=== PATIENT | male | born 1955 | race Caucasian/White ===

== ENCOUNTER 2018-10-28 11:14 | Observation (INO) ==
[2018-10-28] MEDS ORDERED: Ipratropium/Albuterol Neb 3 ML IH ONE (11:37)
[2018-10-28] MEDS ORDERED: methylPREDNISolone 125 MG/2 ML VIAL IVP ONE (11:37)
[2018-10-28] MEDS ORDERED: Acetaminophen 325 MG TABLET PO ONE (11:38)
[2018-10-28] MEDS ORDERED: Isovue-370 500 ML BOTTLE IVP ONE (13:01)
--- NOTE | 2018-10-28 13:14 | Emergency Department Note ---
Disposition Clinical Impression: Acute exacerbation of chronic obstructive airways disease Disposition: Admitted As Inpatient Condition: Good Time of Disposition: 16:48 General Adult HPI - General Chief complaint: ED Shortness of Breath/Dyspnea Stated complaint: DAVI Time Seen by Provider: 10/28/18 11:25 Source: patient Limitations: no limitations Nursing Notes Reviewed: Yes Vital Signs Reviewed: Yes - History of Present Illness HPI Narrative: 63 yo male with past medical history of COPD presents to the emergency room with difficulty in breathing. This patient states that he has been coughing for the past week with some shortness of breath but since last night shortness of breath has gotten acutely worse. He now has trouble catching his breath after coughing spells. The cough has been nonproductive. He did take his albuterol inhaler this morning at 4:00 which slightly helped with his shortness of breath. He has had to be admitted for pneumonia in the past. He denies a history of heart attack, heart failure, other medical problems. His father had congestive heart failure. He admits to some increased dyspnea on exertion. He denies fevers, chest pain, abdominal pain, nausea, vomiting. He has not had any leg swelling. He denies a history of any blood clots or clotting disorders in the family. Pain Scale: 0 - Related Data Home Medications Medication Instructions Recorded Confirmed Albuterol Sulfate [Ventolin Hfa] 2 puff IH Q4H PRN 03/21/16 03/21/16 Cholecalciferol (D-3) [Vitamin D] 1,000 unit PO DAILY 03/21/16 03/21/16 Fluticasone/Salmeterol [Advair 1 puff IH BID 03/21/16 03/21/16 250-50 Diskus] Loratadine [Claritin] 10 mg PO DAILY 03/21/16 03/21/16 Montelukast [Singulair] 10 mg PO DAILY 03/21/16 03/21/16 Multivitamin [Multi-Day Vitamins] 1 tab PO DAILY 03/21/16 03/21/16 Ranitidine HCl [Heartburn Relief] 150 mg PO BID 03/21/16 03/21/16 Tiotropium [Spiriva] 1 cap IH DAILY 03/21/16 03/21/16 Previous Rx's Medication Instructions Recorded OxyCODONE/APAP 10/325 [Percocet 1 each PO Q6HR PRN #24 tablet 03/23/16 10/325 MG] Allergies Allergy/AdvReac Type Severity Reaction Status Date / Time azithromycin Allergy Rash Verified 03/21/16 12:58 All systems ED: reviewed and negative except as stated. Review of Systems: As Per HPI Constitutional: Denies: fever, chills, weakness ENT ED: Reports: throat pain Cardiovascular: Reports: dyspnea on exertion. Denies: chest pain, palpitations, orthopnea, edema, syncope Respiratory: Reports: cough, dyspnea. Denies: wheezes, hemoptysis, stridor Gastrointestinal: Denies: abdominal pain, nausea, vomiting, diarrhea Genitourinary: Denies: dysuria, hematuria Musculoskeletal: Denies: back pain, neck pain Integumentary: Denies: rash Neurological: Denies: headache Past Medical History - Past Medical History Medical history: Reports: COPD, GERD Psychiatric history: Reports: no psych history - Social History Smoking Status: Current every day smoker Smokeless Tobacco Status: No Alcohol use: Reports: occasionally Drug use: Reports: none Physical Exam - General Limitations: no limitations General appearance: alert, in no apparent distress - Head Head exam: atraumatic, normocephalic - Eye Eye exam: Present: normal appearance, PERRL, EOMI - ENT ENT exam: normal exam, normal oropharynx, mucous membranes moist - Neck Neck exam: Present: normal inspection. Absent: tenderness, lymphadenopathy - Chest Chest inspection: Present: normal inspection, symmetric chest wall rise. Absent: tenderness, rash - Respiratory Respiratory exam: Present: other (Diminished breath sounds bilaterally). Absent: wheezes - Cardiovascular Cardiovascular exam: Present: normal rhythm, tachycardia - Abdominal Exam Abdominal exam: Present: soft, Non-Tender. Absent: distention, guarding, rebound, rigidity - Extremities Exam Extremities exam: Present: normal inspection, other (Margarita sign negative). Absent: tenderness, pedal edema, calf tenderness - Neurological Exam Neurological exam: Present: alert, oriented X3, CN II-XII intact. Absent: motor sensory deficit - Psychiatric Psychiatric exam: Present: normal affect, normal mood - Skin Skin exam: Present: warm, dry, intact Course Vital Signs Temperature 98.2 F 10/28/18 11:17 Pulse Rate 129 10/28/18 11:17 Respiratory Rate 22 10/28/18 11:17 Blood Pressure 118/79 10/28/18 11:17 O2 Sat by Pulse Oximetry 95 10/28/18 11:17 Temperature 98.2 F 10/28/18 11:17 Pulse Rate 108 10/28/18 14:46 Respiratory Rate 20 10/28/18 14:46 Blood Pressure 101/60 10/28/18 14:46 O2 Sat by Pulse Oximetry 93 10/28/18 14:46 Oxygen Delivery Oxygen Delivery Nasal Cannula Medical Decision Making - [facility] Narrative Medical decision making narrative: This patient with history of COPD presents with signs and symptoms of possible COPD exacerbation versus pneumonia. We will do a cardiac workup and treat him with Solu-Medrol and 3 duo nebs. 1230 - BNP has returned elevated. Chest x-ray looks clear. We will do a CT scan of the chest to the patient's history of pneumonia and to also rule out pulmonary embolism on this patient. Plan will be to admit the patient once workup is completed. 1645 - CT scan does not show any evidence of pulmonary embolus. The patient will be admitted to the hospitalist for further management of his COPD exacerbation. - Medical Records Medical records reviewed: Yes I reviewed the patient's medical records. - Lab Data Lab results reviewed: Yes I reviewed the patient's lab results. Result diagrams: 10/28/18 11:35 10/28/18 11:35 Lab Results 10/28/18 10/28/18 10/28/18 Range/Units 11:35 11:35 11:35 WBC 10.2 (4.3-11.1) K/mcL RBC 4.25 (4.19-5.50) M/mcL Hgb 13.8 (12.9-16.9) g/dL Hct 40.9 (37.5-50.1) % MCV 96.2 (83.0-100.0) fL MCH 32.5 (28.0-33.3) pg MCHC 33.7 (31.6-35.5) g/dL RDW 13.0 (11.5-14.5) % Plt Count 229 (140-400) K/mcL MPV 10.9 (9.4-12.4) fL Immature Gran % 0.3 (0-4) % Seg Neutrophils % 83.5 % Lymphocytes % 4.6 % Monocytes % 9.3 % Eosinophils % 2.0 % Basophils % 0.3 % Neutrophils # 8.5 (1.6-8.9) K/mcL Lymphocytes # 0.5 L (0.6-4.6) K/mcL Monocytes # 1.0 (0.0-1.3) K/mcL Eosinophils # 0.2 (0.0-0.6) K/mcL Basophils # 0.0 (0.0-0.2) K/mcL D-Dimer (0-500) ng/mLFEU Sodium 137 (136-145) mEq/L Potassium 3.7 (3.5-5.1) mEq/L Chloride 104 (98-107) mEq/L Carbon Dioxide 26 (23-29) mEq/L BUN 12 (8-23) mg/dL Creatinine 0.85 (0.70-1.30) mg/dL Est GFR ( Amer) > 60 (> 60) Est GFR (Non-Af Amer) > 60 (> 60) BUN/Creatinine Ratio 14 (6-26) Glucose 122 H (70-105) mg/dL Calculated Osmolality 285 (280-300) Calcium 9.4 (8.6-10.3) mg/dL Troponin I < 0.03 (< 0.04) ng/mL B-Natriuretic Peptide 862 H (Less than 100) pg/mL 10/28/18 Range/Units 11:35 WBC (4.3-11.1) K/mcL RBC (4.19-5.50) M/mcL Hgb (12.9-16.9) g/dL Hct (37.5-50.1) % MCV (83.0-100.0) fL MCH (28.0-33.3) pg MCHC (31.6-35.5) g/dL RDW (11.5-14.5) % Plt Count (140-400) K/mcL MPV (9.4-12.4) fL Immature Gran % (0-4) % Seg Neutrophils % % Lymphocytes % % Monocytes % % Eosinophils % % Basophils % % Neutrophils # (1.6-8.9) K/mcL Lymphocytes # (0.6-4.6) K/mcL Monocytes # (0.0-1.3) K/mcL Eosinophils # (0.0-0.6) K/mcL Basophils # (0.0-0.2) K/mcL D-Dimer 527 H (0-500) ng/mLFEU Sodium (136-145) mEq/L Potassium (3.5-5.1) mEq/L Chloride (98-107) mEq/L Carbon Dioxide (23-29) mEq/L BUN (8-23) mg/dL Creatinine (0.70-1.30) mg/dL Est GFR ( Amer) (> 60) Est GFR (Non-Af Amer) (> 60) BUN/Creatinine Ratio (6-26) Glucose (70-105) mg/dL Calculated Osmolality (280-300) Calcium (8.6-10.3) mg/dL Troponin I (< 0.04) ng/mL B-Natriuretic Peptide (Less than 100) pg/mL - Radiology Data Radiology results reviewed: Yes I reviewed the patient's radiology results. - EKG Data EKG #1 EKG attestation: Yes I reviewed and interpreted this EKG. EKG results narrative: EKG obtained at 11:25 on 10/28/2018 Heart rate 115 bpm, SD interval 141, QRS duration 110, QT 347, QTC 480 Sinus tachycardia without any significant ST segment elevations. There are some ST depressions in V's including lead 2, 3, aVF, V3 through the cervix. The anterior lead depressions are new when compared to previous EKG dated 03/22/2016. Attestation Statement - Attestation Attestation: I, Tye Gill, examined this patient and my medical decision-making was reviewed with the HOME AID/PA/Advanced Practice Nurse/Resident Physician. I agree with the documented findings, disposition and treatment plan as described except to the extent set forth below. 63-year-old male presents emergency Department with concerns of difficult in breathing. Patient states symptoms have been worsening over the past few days. Patient has a history of emphysema the past. He also has a history of previous pneumonia which did not show up on x-ray but caused him to become septic. Patient reports a subjective fever but denies vomiting, syncope, chest pain. He is dyspneic on exam, he has mild wheezing in the right lower bases. CTA of the chest did not show evidence of acute PE. He does have some bronchial wall thickening present on CT. Patient will be treated with steroids and admitted for further care and evaluation of COPD versus bronchitis with dyspnea.
[2018-10-28 15:00] LABS: BUN/Creatinine Ratio 14 (6-26); Blood Urea Nitrogen 12 mg/dL (8-23); Calcium 9.4 mg/dL (8.6-10.3); Carbon Dioxide 26 mEq/L (23-29); Chloride 104 mEq/L (98-107); Glucose 122 mg/dL (70-105); Osmolality,Calculated 285 (280-300); Potassium 3.7 mEq/L (3.5-5.1); Sodium 137 mEq/L (136-145); eGFR For Non-African Americans > 60 (> 60)
[2018-10-28 15:33] LABS: Troponin I < 0.03 ng/mL (< 0.04)
[2018-10-28 16:02] LABS: Basophils % 0.3 %; Eosinophils # 0.2 K/mcL (0.0-0.6); Hematocrit 40.9 % (37.5-50.1); Hemoglobin 13.8 g/dL (12.9-16.9); Immature Granulocytes % 0.3 % (0-4); Lymphocytes # 0.5 K/mcL (0.6-4.6); Lymphocytes % 4.6 %; Mean Corpuscular HGB Conc 33.7 g/dL (31.6-35.5); Mean Corpuscular Hemoglobin 32.5 pg (28.0-33.3); Mean Corpuscular Volume 96.2 fL (83.0-100.0); Mean Platelet Volume 10.9 fL (9.4-12.4); Monocytes % 9.3 %; Neutrophils # 8.5 K/mcL (1.6-8.9); Platelet Count 229 K/mcL (140-400); Red Blood Count 4.25 M/mcL (4.19-5.50); Segmented Neutrophils % 83.5 %
[2018-10-28] MEDS ORDERED: Ibuprofen 600 MG TABLET PO ONE (16:48)
[2018-10-28] MEDS ORDERED: Naloxone 0.4 MG/ML INJ IVP PRN (17:20)
[2018-10-28] MEDS ORDERED: Ipratropium/Albuterol Neb 3 ML IH PRN (17:21)
--- NOTE | 2018-10-28 17:29 | Internal Med History&Physical ---
Date of Encounter: 10/28/18 Time of Encounter: 17:00 Internal Medicine - H&P: HPI Chief complaint: Shortness of breath Admitted From: Home Plans for Post Hospital Care: Home History of present illness: Mr. Link is a 63 year old male presented to ER for shortness of breath and nonproductive cough. Past medical history is significant for COPD, arthritis Patient has a runny nose about one week, on and off. Since yesterday, he started having dry cough, whole-body aches, worsening shortness of breath which progressively getting worse overnight. Patient denies fever, chest pain, nausea, vomiting, or diarrhea. Patient has mild to moderate headache, denies vision change. In the emergency room, patient was treated with IV steroids, DuoNeb treatment. Patient feels better after treatment. Patient was admitted as COPD exacerbation. Patient has CTA in the emergency room, which is negative for PE. Past Med Surg Social Fam HX - Past Medical History Medical history: COPD, GERD Psychiatric history: no psych history - Past Surgical History Surgical History: cholecystectomy - Social History Smoking Status: Current every day smoker Smokeless Tobacco Status: No Alcohol use: occasionally Drug use: none - Family History Mother History Unknown: Yes Internal Medicine - H&P: Meds Albuterol Sulfate [Ventolin Hfa] 2 puff IH Q4H PRN 03/21/16 [History] Cholecalciferol (D-3) [Vitamin D] 1,000 unit PO DAILY 03/21/16 [History] Fluticasone/Salmeterol [Advair 250-50 Diskus] 1 puff IH BID 03/21/16 [History] Loratadine [Claritin] 10 mg PO DAILY 03/21/16 [History] Montelukast [Singulair] 10 mg PO DAILY 03/21/16 [History] Multivitamin [Multi-Day Vitamins] 1 tab PO DAILY 03/21/16 [History] Ranitidine HCl [Heartburn Relief] 150 mg PO BID 03/21/16 [History] Tiotropium [Spiriva] 1 cap IH DAILY 03/21/16 [History] OxyCODONE/APAP 10/325 [Percocet 10/325 MG] 1 each PO Q6HR PRN #24 tablet 03/23/16 [Rx] Allergy/AdvReac Type Severity Reaction Status Date / Time azithromycin Allergy Rash Verified 03/21/16 12:58 All Systems PM: A 10-system review of systems was performed and is negative for pertinent findings except as documented above in the HPI. - Constitutional Vitals: Temp Pulse Resp BP Pulse Ox 98.2 F 108 22 116/70 93 10/28/18 11:17 10/28/18 14:46 10/28/18 17:16 10/28/18 17:16 10/28/18 14:46 Exam: Pt is AAO x 3, in NAD HEENT: NC/AT, PERRL Neck: Supple, no JVD, no LAD Lungs: Coarse breath sounds bilaterally, no wheezing/rhonchi Heart: S1S2, RRR Abd: Soft, nontender, BS present Ext: ROM wnl, no pedal edema Neuro: No focal deficit Internal Med - H&P Results - Labs CBC & Chem 7: 10/28/18 11:35 10/28/18 11:35 Labs: Short CBC 10/28/18 Range/Units 11:35 WBC 10.2 (4.3-11.1) K/mcL Hgb 13.8 (12.9-16.9) g/dL Hct 40.9 (37.5-50.1) % Plt Count 229 (140-400) K/mcL Neutrophils # 8.5 (1.6-8.9) K/mcL BMP 10/28/18 11:35 Sodium 137 Potassium 3.7 Chloride 104 Carbon Dioxide 26 BUN 12 Creatinine 0.85 Glucose 122 H Calcium 9.4 Cardiac Enzymes 10/28/18 Range/Units 11:35 Troponin I < 0.03 (< 0.04) ng/mL - Impressions ITS Impressions Chest X-Ray 10/28/18 11:35 IMPRESSION: No evidence of acute cardiopulmonary disease. D/ / Adarsh Freire MD / Adarsh Freire MD Interpreting Provider: Adarsh Freire MD Chest CTA 10/28/18 13:01 IMPRESSION: 1. No findings of pulmonary embolism. 2. Mild bronchial wall thickening with some central moderate involvement in the right lower lobe, suggestive of bronchitis given central airway secretions. 3. Unchanged 1.6 cm x 1.1 cm part solid nodule in the left upper lobe with a 0.6 cm solid component. The appearance is suggestive of an indolent neoplasm such as adenocarcinoma, but lack of change since 08/24/2012 suggests scarring. No follow-up is recommended as below. 4. Long-term stability of solid nodules in the bilateral upper lobes that measure up to 1.2 cm x 0.4 cm, also consistent with benignity. No follow-up is recommended as below. 5. Minimal centrilobular and paraseptal emphysema. RECOMMENDATIONS: Fleischner Society guidelines for follow-up and management of incidentally detected subsolid pulmonary nodules: Solitary part-solid nodules > than or equal to 6 mm - CT at 3-6 to confirm persistence. If unchanged and solid component remains less than 6 mm, annual CT should be performed for 5 years. (completed) Radiology 2017 http://pubs.rsna.org/doi/full/10.1148/radiol.6469858744 Fleischner Society guidelines for follow-up and management of incidentally detected pulmonary nodules: Multiple Solid Nodules: Nodule size greater than 8 mm In a high-risk patient, CT at 3-6 months, then CT at 18-24 months. (completed) Radiology 2017 http://pubs.[facility]na.org/doi/full/10.1148/radiol.7732735897 D/ / Josué Fish MD / Josué Fish MD Interpreting Provider: Josué Fish MD - Assessment and plan (1) Acute bronchitis Current Visit: Yes Status: Acute Assessment and plan: CTA has been done which shows acute bronchitis. Patient has runny nose prior to increased shortness of breath. - Respiratory viral panel - Symptomatic and supportive treatment Qualifiers: Bronchitis organism: unspecified organism Qualified Code(s): J20.9 - Acute bronchitis, unspecified (2) Arthritis Current Visit: Yes Status: Acute Assessment and plan: Continue home pain medications (3) DVT prophylaxis Current Visit: Yes Status: Acute Assessment and plan: Heparin subcutaneously (4) Acute exacerbation of chronic obstructive airways disease Current Visit: Yes Status: Acute Assessment and plan: Patient has a history of COPD. With worsening shortness of breath, respond to bronchodilator and steroid treatment. Has some URI symptoms. Consider COPD exacerbation triggered by URI. - Place patient on by mouth steroids, bronchodilator - Place patient on nasal cannula oxygen supportive treatment - Cough syrup for symptomatic relief - No signs of infection at this point, will hold antibiotics. (5) Elevated brain natriuretic peptide (BNP) level Current Visit: Yes Status: Acute Assessment and plan: Etiology is undetermined. Less likely CHF as patient has clear chest x-ray, no signs of leg swelling. His shortness of breath worsening with dry cough, favor COPD exacerbation. - We will check echocardiogram to rule out CHF or pulmonary hypertension. - Time Spent With Patient Total time spent is greater than 50% in coordination of care (as documented) at patient's floor/unit and/or counseling patient: 40 minutes. Greater than 35 minutes
[2018-10-28] MEDS: *HR* Heparin 5,000 UNIT/ML VIAL SQ SCH (20:02)
[2018-10-28] MEDS: GuaiFENesin Liq 200 MG/10 ML UDC PO SCH (20:03)
[2018-10-28] MEDS ORDERED: Perflutren Lipid Microsphere 1.3 ML in 0.9 % Sodium Chloride 8.7 ML IVP ONE (20:43)
[2018-10-28 21:21] LABS: Adenovirus Not Detected (Not Detect); Bordetella Pertussis Not Detected (Not Detect); Chlamydophila pneumoniae Not Detected (Not Detect); Coronavirus 229E Not Detected (Not Detect); Coronavirus HKU1 Not Detected (Not Detect); Coronavirus NL63 Not Detected (Not Detect); Coronavirus OC43 Not Detected (Not Detect); Human Metapneumovirus Not Detected (Not Detect); Human Rhinovirus/Enterovirus Not Detected (Not Detect); Influenza A Subtype 2009 H1 Not Detected (Not Detect); Influenza A Untypeable Not Detected (Not Detect); Influenza B Not Detected (Not Detect); Mycoplasma pneumoniae Not Detected (Not Detect); Parainfluenza Virus 1 Not Detected (Not Detect); Parainfluenza Virus 2 Not Detected (Not Detect); Parainfluenza Virus 3 Not Detected (Not Detect); Parainfluenza Virus 4 Not Detected (Not Detect); Respiratory Syncytial Virus Not Detected (Not Detect)
[2018-10-28] MEDS: Famotidine 20 MG TABLET PO SCH (21:25)
[2018-10-28] MEDS: Acetaminophen 325 MG TABLET PO PRN (21:40)
[2018-10-28] MEDS: Ipratropium/Albuterol Neb 3 ML IH SCH (23:07)
[2018-10-28] MEDS: Budesonide/Formoterol 80/4.5 MDI IH SCH (23:07)
[2018-10-29] MEDS: GuaiFENesin Liq 200 MG/10 ML UDC PO SCH ×4 (00:06→17:42)
[2018-10-29] MEDS: Ipratropium/Albuterol Neb 3 ML IH SCH ×4 (04:38→22:49)
[2018-10-29 04:59] LABS: Basophils % 0.1 %; Hemoglobin 12.9 g/dL (12.9-16.9); Immature Granulocytes % 0.5 % (0-4); Lymphocytes # 0.6 K/mcL (0.6-4.6); Lymphocytes % 6.6 %; Mean Corpuscular HGB Conc 33.9 g/dL (31.6-35.5); Mean Corpuscular Hemoglobin 32.3 pg (28.0-33.3); Mean Platelet Volume 10.5 fL (9.4-12.4); Monocytes % 10.5 %; Neutrophils # 7.6 K/mcL (1.6-8.9); Platelet Count 224 K/mcL (140-400); Red Cell Distribution Width 12.8 % (11.5-14.5); Segmented Neutrophils % 82.3 %
[2018-10-29 05:18] LABS: BUN/Creatinine Ratio 18 (6-26); Blood Urea Nitrogen 14 mg/dL (8-23); Calcium 9.3 mg/dL (8.6-10.3); Carbon Dioxide 25 mEq/L (23-29); Chloride 101 mEq/L (98-107); Glucose 110 mg/dL (70-105); Magnesium 2.2 mg/dL (1.6-2.6); Osmolality,Calculated 293 (280-300); Potassium 3.7 mEq/L (3.5-5.1); Sodium 141 mEq/L (136-145); eGFR For Non-African Americans > 60 (> 60)
[2018-10-29] MEDS: *HR* Heparin 5,000 UNIT/ML VIAL SQ SCH ×2 (05:53→17:42)
[2018-10-29] MEDS: Acetaminophen 325 MG TABLET PO PRN (05:55)
[2018-10-29] MEDS: Famotidine 20 MG TABLET PO SCH ×2 (08:26→21:05)
[2018-10-29] MEDS: predniSONE 20 MG TABLET PO SCH (08:26)
[2018-10-29] MEDS: Budesonide/Formoterol 80/4.5 MDI IH SCH ×2 (10:52→22:49)
[2018-10-29] MEDS: *HR* OxyCODONE/APAP 10/325 TABLET PO PRN (11:19)
--- NOTE | 2018-10-29 12:16 | Internal Med Progress Note ---
Hospitalist Progress Note - Encounter Date of Encounter: 10/29/18 Time of Encounter: 09:00 - Subjective Interval History: Patient is still complaining of whole body ache. Still cough, started to have yellowish/greenish sputum. Slightly improved shortness of breath. - Exam Vitals: Temp Pulse Resp BP Pulse Ox 99.2 F 112 17 122/74 90 10/29/18 11:06 10/29/18 11:06 10/29/18 11:06 10/29/18 11:06 10/29/18 11:06 Exam: Pt is AAO x 3, in NAD HEENT: NC/AT, PERRL Neck: Supple, no JVD, no LAD Lungs: Coarse breath sounds bilaterally, no wheezing/rhonchi Heart: S1S2, RRR Abd: Soft, nontender, BS present Ext: ROM wnl, no pedal edema Neuro: No focal deficit - Assessment and Plan (1) Acute bronchitis Current Visit: Yes Status: Acute Assessment and Plan: CTA has been done which shows acute bronchitis. Patient has runny nose prior to increased shortness of breath. - Respiratory viral panel shows negative - Symptomatic and supportive treatment (2) Arthritis Current Visit: Yes Status: Acute Assessment and Plan: Continue home pain medications (3) DVT prophylaxis Current Visit: Yes Status: Acute Assessment and Plan: Heparin subcutaneously (4) Acute exacerbation of chronic obstructive airways disease Current Visit: Yes Status: Acute Assessment and Plan: Patient has a history of COPD. With worsening shortness of breath, respond to bronchodilator and steroid treatment. Has some URI symptoms. Consider COPD exacerbation triggered by URI. - Cont by mouth steroids, bronchodilator - Place patient on nasal cannula oxygen supportive treatment - Cough syrup for symptomatic relief - No signs of infection at this point, will hold antibiotics. (5) Elevated brain natriuretic peptide (BNP) level Current Visit: Yes Status: Acute Assessment and Plan: Etiology is undetermined. Less likely CHF as patient has clear chest x-ray, no signs of leg swelling. He has shortness of breath worsening with cough, favor COPD exacerbation/acute bronchitis. - Echo has been done. Report is pending - Time Spent with Patient Total time spent is greater than 50% in coordination of care (as documented) at patient's floor/unit and/or counseling patient: 30 minutes 25 - 35 minutes Plan of Care Discussed with: patient Internal Medicine: Result - Labs CBC & Chem 7: 10/29/18 04:35 10/29/18 04:35 Labs: Short CBC 10/28/18 10/29/18 Range/Units 11:35 04:35 WBC 10.2 9.2 (4.3-11.1) K/mcL Hgb 13.8 12.9 (12.9-16.9) g/dL Hct 40.9 38.0 (37.5-50.1) % Plt Count 229 224 (140-400) K/mcL Neutrophils # 8.5 7.6 (1.6-8.9) K/mcL BMP 10/28/18 10/29/18 11:35 04:35 Sodium 137 141 Potassium 3.7 3.7 Chloride 104 101 Carbon Dioxide 26 25 BUN 12 14 Creatinine 0.85 0.77 Glucose 122 H 110 H Calcium 9.4 9.3 Cardiac Enzymes 10/28/18 Range/Units 11:35 Troponin I < 0.03 (< 0.04) ng/mL - ABG Interpretation ABG results: PT/INR, D-dimer D-Dimer 527 ng/mLFEU (0-500) H 10/28/18 11:35 - Impressions Impressions Chest CTA 10/28/18 13:01 IMPRESSION: 1. No findings of pulmonary embolism. 2. Mild bronchial wall thickening with some central moderate involvement in the right lower lobe, suggestive of bronchitis given central airway secretions. 3. Unchanged 1.6 cm x 1.1 cm part solid nodule in the left upper lobe with a 0.6 cm solid component. The appearance is suggestive of an indolent neoplasm such as adenocarcinoma, but lack of change since 08/24/2012 suggests scarring. No follow-up is recommended as below. 4. Long-term stability of solid nodules in the bilateral upper lobes that measure up to 1.2 cm x 0.4 cm, also consistent with benignity. No follow-up is recommended as below. 5. Minimal centrilobular and paraseptal emphysema. RECOMMENDATIONS: Fleischner Society guidelines for follow-up and management of incidentally detected subsolid pulmonary nodules: Solitary part-solid nodules > than or equal to 6 mm - CT at 3-6 to confirm persistence. If unchanged and solid component remains less than 6 mm, annual CT should be performed for 5 years. (completed) Radiology 2017 http://pubs.rsna.org/doi/full/10.1148/radiol.8165233154 Fleischner Society guidelines for follow-up and management of incidentally detected pulmonary nodules: Multiple Solid Nodules: Nodule size greater than 8 mm In a high-risk patient, CT at 3-6 months, then CT at 18-24 months. (completed) Radiology 2017 http://pubs.rsna.org/doi/full/10.1148/radiol.8940308317 D/ / Josué Fish MD / Josué Fish MD Interpreting Provider: Josué Fish MD Consult Discharge Plan - Plan Referrals: NONE,PCP [Primary Care Provider] - (1) Acute bronchitis Qualifiers: Bronchitis organism: unspecified organism Qualified Code(s): J20.9 - Acute bronchitis, unspecified
[2018-10-30] MEDS: GuaiFENesin Liq 200 MG/10 ML UDC PO SCH ×5 (01:01→23:58)
[2018-10-30] MEDS: Ipratropium/Albuterol Neb 3 ML IH SCH ×4 (04:43→22:05)
--- NOTE | 2018-10-30 05:27 | Electrocardiograph Report ---
[facility] Test Date: 2018-10-28 Pat Name: Denys Link Department: [id number] Room: 3B35 Gender: M Student Financial Services Counselor: : 1955 Requested By: Merary Thomas Order Number: [id number] Reading MD: Gio Man Measurements Intervals [place] Rate: 115 P: 84 [place]: 141 QRS: 67 QRSD: 110 T: 53 QT: 347 QTc: 480 Interpretive Statements Sinus tachycardia RSR' in V1 or V2, right VCD or RVH Borderline prolonged QT interval Electronically Signed On 10-30-2018 5:26:28 EST by Gio Man
[2018-10-30] MEDS: *HR* Heparin 5,000 UNIT/ML VIAL SQ SCH ×2 (05:34→12:06)
[2018-10-30] MEDS: predniSONE 20 MG TABLET PO SCH (08:09)
[2018-10-30] MEDS: Famotidine 20 MG TABLET PO SCH ×2 (08:09→21:01)
[2018-10-30] MEDS: *HR* OxyCODONE/APAP 10/325 TABLET PO PRN (08:13)
[2018-10-30 10:18] LABS: Basophils % 0.1 %; Eosinophils % 0.1 %; Hematocrit 36.4 % (37.5-50.1); Hemoglobin 12.1 g/dL (12.9-16.9); Immature Granulocytes % 0.3 % (0-4); Lymphocytes # 0.9 K/mcL (0.6-4.6); Lymphocytes % 9.3 %; Mean Corpuscular HGB Conc 33.2 g/dL (31.6-35.5); Mean Corpuscular Hemoglobin 32.2 pg (28.0-33.3); Mean Corpuscular Volume 96.8 fL (83.0-100.0); Mean Platelet Volume 10.4 fL (9.4-12.4); Monocytes # 0.9 K/mcL (0.0-1.3); Neutrophils # 8.1 K/mcL (1.6-8.9); Platelet Count 203 K/mcL (140-400); Red Blood Count 3.76 M/mcL (4.19-5.50); Red Cell Distribution Width 13.2 % (11.5-14.5); Segmented Neutrophils % 81.2 %
[2018-10-30] MEDS: Budesonide/Formoterol 80/4.5 MDI IH SCH ×2 (10:34→22:05)
[2018-10-30 10:35] LABS: BUN/Creatinine Ratio 17 (6-26); Blood Urea Nitrogen 15 mg/dL (8-23); Calcium 9.1 mg/dL (8.6-10.3); Carbon Dioxide 27 mEq/L (23-29); Chloride 102 mEq/L (98-107); Glucose 127 mg/dL (70-105); Osmolality,Calculated 288 (280-300); Potassium 3.4 mEq/L (3.5-5.1); Sodium 138 mEq/L (136-145); eGFR For Non-African Americans > 60 (> 60)
--- NOTE | 2018-10-30 12:58 | Internal Med Progress Note ---
Hospitalist Progress Note - Encounter Date of Encounter: 10/30/18 Time of Encounter: 09:00 - Subjective Interval History: Patient is still complaining of whole body ache. Still cough with yellowish/greenish sputum. Slightly improved shortness of breath. - Exam Vitals: Temp Pulse Resp BP Pulse Ox 98.3 F 82 16 104/71 91 10/30/18 11:23 10/30/18 11:23 10/30/18 11:23 10/30/18 11:23 10/30/18 11:23 Exam: Pt is AAO x 3, in NAD HEENT: NC/AT, PERRL Neck: Supple, no JVD, no LAD Lungs: Coarse breath sounds bilaterally, no wheezing/rhonchi Heart: S1S2, RRR Abd: Soft, nontender, BS present Ext: ROM wnl, no pedal edema Neuro: No focal deficit - Assessment and Plan (1) Acute bronchitis Current Visit: Yes Status: Acute Assessment and Plan: CTA has been done which shows acute bronchitis. Patient has runny nose prior to increased shortness of breath. - Respiratory viral panel shows negative - Symptomatic and supportive treatment - Repeat CXR today remains no acute cardiopulmonary process (2) Arthritis Current Visit: Yes Status: Acute Assessment and Plan: Continue home pain medications (3) DVT prophylaxis Current Visit: Yes Status: Acute Assessment and Plan: Heparin subcutaneously (4) Acute exacerbation of chronic obstructive airways disease Current Visit: Yes Status: Acute Assessment and Plan: Patient has a history of COPD. With worsening shortness of breath, respond to bronchodilator and steroid treatment. Has some URI symptoms. Consider COPD exacerbation triggered by URI. - Cont by mouth steroids, bronchodilator - Place patient on nasal cannula oxygen supportive treatment - Cough syrup for symptomatic relief - No signs of infection at this point, will hold antibiotics. (5) Elevated brain natriuretic peptide (BNP) level Current Visit: Yes Status: Acute Assessment and Plan: Etiology is undetermined. Less likely CHF as patient has clear chest x-ray, no signs of leg swelling. He has shortness of breath worsening with cough, favor COPD exacerbation/acute bronchitis. - Echo has been done. Report is pending - Time Spent with Patient Total time spent is greater than 50% in coordination of care (as documented) at patient's floor/unit and/or counseling patient: 30 min 25 - 35 minutes Plan of Care Discussed with: patient Internal Medicine: Result - Labs CBC & Chem 7: 10/30/18 09:53 10/30/18 09:53 Labs: Short CBC 10/30/18 Range/Units 09:53 WBC 9.9 (4.3-11.1) K/mcL Hgb 12.1 L (12.9-16.9) g/dL Hct 36.4 L (37.5-50.1) % Plt Count 203 (140-400) K/mcL Neutrophils # 8.1 (1.6-8.9) K/mcL BMP 10/30/18 09:53 Sodium 138 Potassium 3.4 L Chloride 102 Carbon Dioxide 27 BUN 15 Creatinine 0.90 Glucose 127 H Calcium 9.1 - ABG Interpretation ABG results: PT/INR, D-dimer D-Dimer 527 ng/mLFEU (0-500) H 10/28/18 11:35 - Impressions Impressions Chest X-Ray 10/30/18 10:18 IMPRESSION: No evidence for acute cardiopulmonary process. Lung parenchymal findings noted on recent CT chest 10/28/2018 not definitely demonstrated on this chest x-ray. Reference to the CT chest can be made for additional information. D/ / Joe Neff MD / Joe Neff MD Interpreting Provider: Joe Neff MD Consult Discharge Plan - Plan Referrals: NONE,PCP [Primary Care Provider] - (1) Acute bronchitis Qualifiers: Bronchitis organism: unspecified organism Qualified Code(s): J20.9 - Acute bronchitis, unspecified
[2018-10-30] MEDS: Acetaminophen 325 MG TABLET PO PRN (21:19)
[2018-10-31] MEDS: Ipratropium/Albuterol Neb 3 ML IH SCH ×2 (04:28→09:40)
[2018-10-31 06:14] LABS: Basophils % 0.1 %; Eosinophils % 0.1 %; Hematocrit 34.1 % (37.5-50.1); Hemoglobin 11.4 g/dL (12.9-16.9); Immature Granulocytes % 0.3 % (0-4); Lymphocytes # 1.9 K/mcL (0.6-4.6); Lymphocytes % 27.4 %; Mean Corpuscular HGB Conc 33.4 g/dL (31.6-35.5); Mean Corpuscular Hemoglobin 32.3 pg (28.0-33.3); Mean Corpuscular Volume 96.6 fL (83.0-100.0); Mean Platelet Volume 10.5 fL (9.4-12.4); Monocytes # 0.8 K/mcL (0.0-1.3); Monocytes % 11.6 %; Neutrophils # 4.2 K/mcL (1.6-8.9); Platelet Count 193 K/mcL (140-400); Red Blood Count 3.53 M/mcL (4.19-5.50); Red Cell Distribution Width 13.1 % (11.5-14.5); Segmented Neutrophils % 60.5 %
[2018-10-31] MEDS: *HR* Heparin 5,000 UNIT/ML VIAL SQ SCH (06:19)
[2018-10-31] MEDS: GuaiFENesin Liq 200 MG/10 ML UDC PO SCH ×2 (06:19→11:30)
[2018-10-31 06:32] LABS: BUN/Creatinine Ratio 22 (6-26); Blood Urea Nitrogen 14 mg/dL (8-23); Carbon Dioxide 27 mEq/L (23-29); Chloride 104 mEq/L (98-107); Glucose 99 mg/dL (70-105); Osmolality,Calculated 289 (280-300); Potassium 3.5 mEq/L (3.5-5.1); Sodium 139 mEq/L (136-145); eGFR For Non-African Americans > 60 (> 60)
[2018-10-31] MEDS: Acetaminophen 325 MG TABLET PO PRN (08:49)
[2018-10-31] MEDS: predniSONE 20 MG TABLET PO SCH (08:49)
[2018-10-31] MEDS: Famotidine 20 MG TABLET PO SCH (08:49)
[2018-10-31] MEDS: Budesonide/Formoterol 80/4.5 MDI IH SCH (09:40)
--- NOTE | 2018-10-31 09:51 | Discharge Summary ---
Date of Encounter: 10/31/18 Time of Encounter: 09:00 - Discharge Diagnosis (1) Acute bronchitis Priority: Primary Status: Acute Qualifiers: Bronchitis organism: unspecified organism Qualified Code(s): J20.9 - Acute bronchitis, unspecified (2) Arthritis Priority: Secondary Status: Acute (3) DVT prophylaxis Priority: Secondary Status: Acute (4) Acute exacerbation of chronic obstructive airways disease Priority: Primary Status: Acute (5) Elevated brain natriuretic peptide (BNP) level Priority: Primary Status: Acute Hospital course: Mr. Link is a 63 year old male presented to ER for acute onset of shortness of breath. Patient also has cough, muscle ache. Chest x-ray negative. CTA shows negative for PE but suggest acute bronchitis. Patient was treated as acute bronchitis and COPD exacerbation. Patient has elevated BNP level, no leg edema, no pulmonary vascular congestion or pulmonary edema on chest x-ray. Echocardiogram has been done, which shows LVEF 55-60%, mild diastolic dysfunction, no pulmonary hypertension. Patient was treated with bronchodilator, steroid, and oxygen. After treatment, patient feels better but is still has cough with sputum. Repeat x-ray did not show signs of pneumonia, no acute cardiopulmonary abnormalities. Will DC patient home with tapering down steroids and cough syrup. Continue follow-up with PCP as outpatient. I have seen and examined the patient today. Patient said whole-body aches and headache has improved. Still cough with thick sputum. Shortness of breath slightly improved. Vitals are stable. No leukocytosis or fever. Will perform 6 minutes walking oxygen qualification test and arrange a home oxygen if patient to qualified. Will DC patient home today and continue outpatient follow-up with PCP. Discharge discussed with: patient - Time Spent with Patient Total time spent providing and/or coordinating discharge services: 25 minutes Less than 30 minutes - Discharge Medications Prescriptions: Acetaminophen [Tylenol] 650 mg PO Q6HR PRN 7 Days #56 tablet PRN Reason: Mild Pain/Fever GuaiFENesin Liq [Robitussin Liq] 200 mg PO Q6HR 7 Days #28 udc predniSONE [PredniSONE] See Taper PO DAILY 7 Days #8 tablet Home Medications: Albuterol Sulfate [Ventolin Hfa] 2 puff IH Q4H PRN 03/21/16 [History] Cholecalciferol (D-3) [Vitamin D] 1,000 unit PO DAILY 03/21/16 [History] Ranitidine HCl [Heartburn Relief] 150 mg PO BID PRN 03/21/16 [History] Tiotropium [Spiriva] 1 cap IH DAILY 03/21/16 [History] Fluticasone/Salmeterol [Advair 250-50 Diskus] 1 puff IH BID 10/29/18 [History] Loratadine [Allergy Relief] 10 mg PO DAILY 10/29/18 [History] Multivit-Min/Folic/Vit K/Lycop [One Daily Men's 50 Plus D3 Tab] 1 tab PO DAILY 10/29/18 [History] Acetaminophen [Tylenol] 650 mg PO Q6HR PRN 7 Days #56 tablet 10/31/18 [Rx] GuaiFENesin Liq [Robitussin Liq] 200 mg PO Q6HR 7 Days #28 udc 10/31/18 [Rx] Montelukast [Singulair] 10 mg PO HS tablet 10/31/18 [Rx] predniSONE [PredniSONE] See Taper PO DAILY 7 Days #8 tablet 10/31/18 [Rx] Allergies/Adverse Reactions: Allergy/AdvReac Type Severity Reaction Status Date / Time azithromycin Allergy "SKIN Verified 10/29/18 13:38 REDNESS, EYES/GUMS BURN" Date of admission: 10/28/18 17:02 Primary care physician: PCP NONE Consults: 10/31/18 08:34 Consult to Nurse Navigator [CONS] Routine Comment: COPD,CHF Discharging clinician: Mann Warner Anticipated date of discharge: 10/31/18 - Constitutional Vitals: Temp Pulse Resp BP Pulse Ox 98.2 F 93 14 109/75 94 10/31/18 07:36 10/31/18 07:36 10/31/18 09:42 10/31/18 07:36 10/31/18 09:42 Exam: Pt is AAO x 3, in NAD HEENT: NC/AT, PERRL Neck: Supple, no JVD, no LAD Lungs: Coarse breath sounds bilaterally, no wheezing/rhonchi Heart: S1S2, RRR Abd: Soft, nontender, BS present Ext: ROM wnl, no pedal edema Neuro: No focal deficit - Patient Status Disposition: Home, Self-Care Condition: Good Functional capacity at discharge: uses cane/walker Overall status at discharge: patient is progressing back to baseline - Discharge Instructions Follow Up With: Wilmar Laguna MD [Partnered Physician] - - Diet and Activity Activity: increase activity as tolerated Diet: regular diet
[2018-10-31 11:18] VITALS: BP 118/75
== END 2018-10-31 15:47 | disposition home or self-care (01) ==
LOC: EMEROOARM 11:14 → 3BNU 11:14
PROVIDERS: ADMIT Student in an Organized Health Care Education/Training Program; ATTEND Student in an Organized Health Care Education/Training Program